=== PATIENT | female | born 1985 | race African-American/Black ===

== ENCOUNTER 2023-06-02 20:16 | Emergency (ER) | payer OTHER ==
[2023-06-02] MEDS ORDERED: Ibuprofen 200 MG TAB ONE (20:50)
[2023-06-02] MEDS ORDERED: Acetaminophen 500 MG TAB ONE (20:52)
[2023-06-02] MEDS ORDERED: Ondansetron ODT 4 MG TAB ONE (21:04)
[2023-06-02 21:15] LABS: SARS-CoV-2 NAA Rapid Test Not Detected (NotDetected)
== END 2023-06-02 21:35 | disposition home or self-care (01) ==
LOC: ERS 20:16
DX: J11.1 Influenza due to unidentified influenza virus with other respiratory manifestations (principal); Z20.822 Contact with and (suspected) exposure to COVID-19; F17.210 Nicotine dependence, cigarettes, uncomplicated
CPT/HCPCS: 99283; Q0162; U0002